=== PATIENT | male | born 1955 | race Caucasian/White ===

== ENCOUNTER 2018-01-06 14:42 | Emergency (ER) | payer OTHER, SELFPAY ==
[2018-01-06 14:52] VITALS: BP 142/76; PULSE 52; RESP 14; TEMP 36.4; O2SAT 100; BMI 25.8
--- NOTE | 2018-01-06 17:37 | PC.NURSE ---
has seen pt and is looking to see what abx will help pt
--- NOTE | 2018-01-06 18:21 | ED_ITS ---
HPI - Skin/Abscess/Foreign Bdy General Chief complaint: Skin/Abscess/Foreign Body Stated complaint: states infection on face History of Present Illness HPI narrative: HPI 62-year-old male with gum disease presents for evaluation of 3 weeks of mild bilateral lower cheek induration, tenderness, and mild swelling. Denies prior trauma, fevers, chills. ROS with no recent constitutional symptoms. Exam Gen: Pleasant, nontoxic-appearing, resting comfortably. HEENT: NC, AT, PEERL, EOMI. Oropharynx visually normal. Resp: Unlabored respirations with a normal work of breathing. Card: Extremities warm and well perfused. GI: Non-distended. : Deferred MSK: No visible deformities, strength and tone without visually appreciable deficit. Neuro: AO x 3, no facial asymmetry, vision and hearing WNL. Heme/Lymph: Deferred Skin: skin on the bilateral cheeks predominately overlying the mandibles of approximately 6 cm horizontally and 3 cm vertically there is mild induration, tenderness, swelling, 2 or 3 small central areas of approximately 3-6 mm in diameter with partial dermal thickness wound/lesion. No drainage. No fluctuance or crepitus. Bedside ultrasound without gas, fluid collections, but with mild soft tissue cobblestoning. Psych: Mood and affect appropriate. MDM Previous chart, nursing note, and vitals reviewed. A: 62-year-old male with gum disease presents for evaluation of 3 weeks of mild bilateral lower cheek induration, tenderness, and mild swelling. DDx & Evaluation: patient clinically with cutaneous infection, no clear identifiable risk factors other than gum disease, given duration of symptoms, partial-thickness skin breakdown, and risk factors actinomycosis remains on the differential, no fluid could be expressed to be cultured. However, more likely is cellulitis from staff or strap. The patient was prescribed amoxicillin and doxycycline for initial empiric treatment instructed to follow up with his PCP for further care. No evidence of necrotizing fasciitis, Ludgwig's angina, or abscesses on exam. Impression: cellulitis (please reference below for remainder of encounter information) Related Data Home Medications Medication Instructions Recorded Confirmed BUPRENORPHINE/NALOXONE (SUBOXONE) 1.5 tab PO QDAY #0 07/18/11 12/05/17 CA PANTOTHENATE/FOLIC ACID/VIT 1 tab PO Q DAY #0 07/18/11 12/05/17 (MULTIVITAMIN) ascorbic acid (vitamin C) 500 mg PO BID #0 07/24/11 12/05/17 aspirin 81 mg QDAY #0 11/26/16 12/05/17 pravastatin 10 mg tablet 10 mg PO BEDTIME 10/29/17 12/05/17 Previous Rx's Medication Instructions Recorded nitroglycerin [Nitrostat] 0.4 mg SUBLINGUAL PRN PRN #20 tab 11/16/16 promethazine 25 mg PO Q6HP PRN #20 tab 12/04/16 bupropion HCl SR 150 mg tablet,12 150 mg PO DAILY #30 tab 10/29/17 hr sustained-release gabapentin 300 mg capsule 900 mg PO BEDTIME #90 cap 10/29/17 cyclobenzaprine 10 mg tablet 10 mg PO TIDP #30 tab 11/01/17 dextroamphetamine-amphetamine 5 mg 5 mg PO BID #60 tab 01/01/18 tablet Allergies Allergy/AdvReac Type Severity Reaction Status Date / Time diphenhydramine Allergy Mild HYPERKINETIC Verified 01/06/18 14:55 [DIPHENHYDRAMINE] CAN'T STOP MOVING hydroxyzine [HYDROXYZINE] Allergy Mild HYPERKINETIC Verified 01/06/18 14:55 CAN'T STOP MOVING atomoxetine [From STRATTERA] AdvReac Unknown RAPID Verified 01/06/18 14:55 HEART RATE PFSH Medical History ADHD (attention deficit hyperactivity disorder) (Chronic 2017) Chronic back pain (Chronic) Chronic headaches (Chronic) Depression (Chronic) Hyperlipidemia (Chronic) Lumbar spine pain (Chronic) CTS (carpal tunnel syndrome) (Resolved) Cryptococcal meningitis (Resolved) Kidney stones (Resolved 2007) Non-STEMI (non-ST elevated myocardial infarction) (Resolved 2016) Surgical History History of carpal tunnel repair (Resolved 09/2005) History of lithotripsy (Resolved 02/07/08) Status post colonoscopy (Resolved 2008) Status post laminectomy (Resolved 1983) Status post laminectomy (Resolved 1999) Social History Smoking Status: Never smoker Exam Initial Vital Signs Initial Vital Signs: Vital Signs Temperature 97.6 F 01/06/18 14:52 Pulse Rate 52 L 01/06/18 14:52 Respiratory Rate 14 01/06/18 14:52 Blood Pressure 142/76 H 01/06/18 14:52 Pulse Oximetry 100 01/06/18 14:52 Course Vital Signs - 8 hr 01/06/18 14:52 Temperature 97.6 F Pulse Rate 52 L Respiratory Rate 14 Blood Pressure 142/76 H Pulse Oximetry 100 Discharge Plan Departure Prescriptions: No Action CA PANTOTHENATE/FOLIC ACID/VIT (MULTIVITAMIN) 1 tab PO Q DAY Qty: 0 RF: 0 BUPRENORPHINE/NALOXONE (SUBOXONE) 1.5 tab PO QDAY Qty: 0 RF: 0 ascorbic acid (vitamin C) 500 MG tablet 500 mg PO BID Qty: 0 RF: 0 nitroglycerin [Nitrostat] 0.4 MG tablet, sublingual 0.4 mg Sublingual PRN PRNQty: 20 RF: 12 aspirin 81 MG tablet,delayed release (DR/EC) 81 mg QDAY Qty: 0 RF: 0 promethazine 25 MG tablet 25 mg PO Q6HP PRNQty: 20 RF: 0 dextroamphetamine-amphetamine [Adderall] 5 mg tablet 5 mg PO BID Qty: 60 RF: 0 pravastatin 10 mg tablet 10 mg PO BEDTIME RF: 0 bupropion HCl 150 mg tablet extended release 12 hr 150 mg PO DAILY Qty: 30 RF: 0 gabapentin 300 mg capsule 900 mg PO BEDTIME Qty: 90 RF: 0 cyclobenzaprine 10 mg tablet 10 mg PO TIDP Qty: 30 RF: 0
[2018-01-06] MEDS: AMOXICILLIN 250 MG CAPSULE 500 MG PO (18:34)
[2018-01-06] MEDS: DOXYCYCLINE HYCLATE 100 MG TABLET PO (18:34)
[2018-01-06 18:39] VITALS: BP 136/83; PULSE 46; RESP 20; O2SAT 99
== END 2018-01-06 18:40 | disposition home or self-care (01) ==
PROVIDERS: Emergency Provider Emergency Medicine; Family Provider Family Medicine; PCP Family Medicine
DX: L03.211 Cellulitis of face (principal)
CPT/HCPCS: 99282; 99283

== ENCOUNTER 2018-08-20 20:55 | Observation (INO) | payer OTHER, SELFPAY ==
[2018-08-20] VITALS (7 sets, daily range): BP systolic 99–124; BP diastolic 55–68; PULSE 59–88; RESP 11–18; TEMP 37; O2SAT 95–98; BMI 25.5
--- NOTE | 2018-08-20 21:03 | DI.RAD.S_ITS ---
PROCEDURE: XR CHEST 1V INDICATIONS: Chest pain TECHNIQUE: One view of the chest was acquired. COMPARISON: [facility], , CHEST 1 VIEW, 11/26/2016, 14:53. FINDINGS: Surgical changes and devices: None. Lungs and pleura: Lungs are clear. No pleural effusions or pneumothorax. Mediastinum: Mediastinal contours appear normal. Heart size is normal. Bones and chest wall: No suspicious bony lesions. Overlying soft tissues appear unremarkable. IMPRESSION: No evidence acute pulmonary process. Dictated by: Vasile Lepe M.D. on 08/20/2018 at 21:42 Approved by: Vasile Lepe M.D. on 08/20/2018 at 21:42
--- NOTE | 2018-08-20 21:12 | ED.CHESTPAIN ---
HPI - Chest Pain General Chief Complaint: Chest Pain Stated Complaint: CHEST PAIN Time Seen by Provider: 08/20/18 20:57 Source: patient Mode of arrival: ambulatory Limitations: no limitations History of Present Illness HPI narrative: The patient presents with chest pain across his upper sternum that started about noon today. He was at work at that time. 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 Pain is across the upper chest, focused around the sternum. Discomfort increases with deep breathing. He has no discomfort at rest. There is no radiation to the left jaw or neck, or down the left arm. He has no associated dyspnea or diaphoresis. He has a prior history of what he described as a small [place]. He mentioned having a coronary spasm. He is a nonsmoker. He denies hypertension, or diabetes. He took Valium prior to arrival, thinking he had muscle spasm. Valium did not alleviate the discomfort. He has no recent illness. He denies cough, fever or shortness of breath. His MO was about 1-1/2 years ago. He saw cardiology initially after the event. 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 He has no follow-up cardiac care. He has not had a stress test. Related Data Home Medications Medication Instructions Recorded Confirmed BUPRENORPHINE/NALOXONE (SUBOXONE) 8 mg PO QDAY #0 07/18/11 08/20/18 CA PANTOTHENATE/FOLIC ACID/VIT 1 tab PO Q DAY #0 07/18/11 08/20/18 (MULTIVITAMIN) ascorbic acid (vitamin C) 500 mg PO BID #0 07/24/11 08/20/18 aspirin 81 mg QDAY #0 11/26/16 08/20/18 pravastatin 10 mg tablet 10 mg PO BEDTIME 10/29/17 08/20/18 Previous Rx's Medication Instructions Recorded nitroglycerin 0.4 mg sublingual 0.4 mg SUBLINGUAL PRN PRN #20 tab 01/29/18 tablet dextroamphetamine-amphetamine 5 mg 5 mg PO BID #60 tab 07/09/18 tablet bupropion HCl SR 150 mg tablet,12 150 mg PO DAILY #90 tab 08/20/18 hr sustained-release Allergies Allergy/AdvReac Type Severity Reaction Status Date / Time diphenhydramine Allergy Mild HYPERKINETIC Verified 04/25/18 15:32 [DIPHENHYDRAMINE] CAN'T STOP MOVING hydroxyzine [HYDROXYZINE] Allergy Mild HYPERKINETIC Verified 04/25/18 15:32 CAN'T STOP MOVING atomoxetine [From STRATTERA] AdvReac Unknown RAPID Verified 04/25/18 15:32 HEART RATE Review of Systems Review of Systems ROS Unobtainable: All systems reviewed & are unremarkable except as noted in HPI and below Constitutional Denies chills, Denies fever(s), Denies lethargy and Denies weakness ENT Ears, Nose, Mouth, and Throat: Denies dizziness, Denies neck pain and Denies sore throat Cardiovascular Reports chest pain (Across the upper chest), Denies palpitations and Denies dyspnea Respiratory Denies cough, Denies dyspnea and Denies wheezing Gastrointestinal Gastrointestinal: Denies abdominal pain, Denies change in bowel habits, Denies nausea, Denies vomiting and Reports other (No history of GERD) Musculoskeletal Denies back pain and Denies neck pain Integumentary/Breasts Denies erythema and Denies rash Neurologic Denies dizziness and Denies weakness Endocrine Denies palpitations Allergic/Immunologic Denies wheezing [facility] Medical History ADHD (attention deficit hyperactivity disorder) (Chronic 2017) Chronic back pain (Chronic) Chronic headaches (Chronic) Depression (Chronic) Hyperlipidemia (Chronic) Lumbar spine pain (Chronic) CTS (carpal tunnel syndrome) (Resolved) Cryptococcal meningitis (Resolved) Kidney stones (Resolved 2007) Non-STEMI (non-ST elevated myocardial infarction) (Resolved 2016) Surgical History History of carpal tunnel repair (Resolved 09/2005) History of lithotripsy (Resolved 02/07/08) Status post colonoscopy (Resolved 2008) Status post laminectomy (Resolved 1983) Status post laminectomy (Resolved 1999) Social History Smoking Status: Never smoker Social History Smoking Status: Never smoker Exam Initial Vital Signs Initial Vital Signs: Vital Signs Pulse Rate 74 08/20/18 21:05 Respiratory Rate 18 08/20/18 21:05 Blood Pressure 124/67 08/20/18 21:05 Pulse Oximetry 98 08/20/18 21:05 Const General: cooperative and well developed Nutritional Appearance: well nourished Orientation: alert, awake and oriented x3 [facility] Mouth: oral mucosae normal Throat: posterior oropharynx normal and tonsils normal Eyes General: appearance normal, both eyes and all related structures Eyelids: eyelids normal Conjunctivae: conjunctivae normal Sclera: sclerae normal Pupils: PERRL EOM: EOM intact bilaterally Neck Neck: supple and No JVD Thyroid: thyroid normal Chest Chest: normal inspection of the chest Resp Effort & Inspection: normal respiratory effort and able to speak in complete sentences Auscultation: clear to auscultation bilaterally, no rales, no rhonchi and no wheezes Cardio Rate: regular rate Rhythm: regular rhythm Heart Sounds: no click, no gallops, no murmurs and no rubs Pulses: normal peripheral pulses GI Inspection: non-distended Palpation: soft, no hepatosplenomegaly, No guarding, No pulsatile mass and No tender Auscultation: normal bowel sounds Skin General: no rashes or lesions noted, No jaundice and No petechiae Neuro General: alert, oriented x3, gait normal and no focal motor deficits Speech: speech normal Extrem General: full ROM, no pedal edema and no calf tenderness Psych Appearance: well kempt Mental Status: mental status grossly normal Attitude: cooperative Thought Content: normal Course Course Narrative: The patient describes pain that is not immediately suggestive cardiac pain. Toradol did not alleviate his symptoms. Topical nitro did not alleviate his symptoms. His 1st EKG raises concern of subtle ST changes in leads V1 through the 3. A repeat EKG looks to be more similar to an older EKG. His enzymes are negative. I discussed his care with Cardiology, Dr. Kessler. The patient be admitted to the hospitalist,DIONE Guzman. I gave the patient an injection of Lovenox. Cardiology recommended an echocardiogram and stress test if the cardiac enzymes are negative through the night. These recommendations have been forwarded to the hospitalist. Orders Ordered: ED Orders 08/20/18 21:02 Basic Metabolic Panel Stat Complete Blood Count AUTO DIFF Stat D Dimer Stat Troponin & CK Cardiac Panel Stat 08/20/18 21:03 XR chest 1V Stat EKG-12 Lead Stat Sodium Chloride (Normal Saline 0.9%) 1,000 mls @ 150 mls/hr IV CONT KATRIN Last Admin: 08/20/18 21:21 Dose: 150 mls/hr Discontinued Medications Aspirin (Aspirin Chew) 324 mg PO NOW ONE Stop: 08/20/18 21:04 Last Admin: 08/20/18 21:21 Dose: 324 mg Enoxaparin Sodium (Lovenox) 80 mg 1 mg/kg (80 mg) SUBCUT NOW ONE Stop: 08/20/18 23:46 Ketorolac Tromethamine (Toradol) 15 mg IV NOW ONE Stop: 08/20/18 21:04 Last Admin: 08/20/18 21:21 Dose: 15 mg Nitroglycerin (Nitro-Bid) 1 inch TOP NOW ONE Stop: 08/20/18 21:06 Last Admin: 08/20/18 21:20 Dose: 1 inch Vital Signs - 8 hr 08/20/18 21:05 08/20/18 21:20 08/20/18 21:30 Pulse Rate 74 88 71 Respiratory Rate 18 12 Blood Pressure 124/67 114/68 Blood Pressure [Right Arm] 108/66 Pulse Oximetry 98 96 08/20/18 22:30 08/20/18 23:00 Pulse Rate 67 59 L Respiratory Rate 11 L Blood Pressure Blood Pressure [Right Arm] 104/66 101/62 Pulse Oximetry 96 95 MDM - Chest Pain Lab Data Result diagrams: 08/20/18 21:02 08/20/18 21:02 Lab Results 08/20/18 08/20/18 08/20/18 Range/Units 21:02 21:02 21:02 WBC 9.7 (4.5-11.0) X10^3/uL RBC 4.35 L (4.5-5.9) X10^6/uL Hgb 13.1 L (13.5-17.5) g/dL Hct 39.9 L (41-53) % MCV 91.7 (80-100) fL MCH 30.0 (26-34) PG MCHC 32.7 (30-36) % RDW 13.3 (11.6-14.8) % Plt Count 243 (150-400) X10^3/uL Neut % (Auto) 82.6 H (50-75) % Lymph % (Auto) 11.7 L (25-40) % [place] % (Auto) 5.1 (3-14) % Eos % (Auto) 0.2 L (2-4) % Baso % (Auto) 0.4 (0-2) % Neut # (Auto) 8000 H (1189-0147) /uL Lymph # (Auto) 1100 (6583-3973) /uL [place] # (Auto) 500 (0-900) /uL Eos # (Auto) 0 (0-450) /uL Baso # (Auto) 0 (0-100) /uL D-Dimer < 200 (<230) ng/mL Sodium 138 (137-145) mmol/L Potassium 3.7 (3.4-5.1) mmol/L Chloride 98 (98-107) mmol/L Carbon Dioxide 31 (22-32) mmol/L BUN 22 H (9-20) mg/dL Creatinine 0.90 (0.66-1.25) mg/dL Estimated GFR > 60.0 (>60) mL/min BUN/Creatinine Ratio 24.4 H (6-22) Glucose 114 H (80-110) mg/dL Calcium 9.3 (8.4-10.2) mg/dL Total Creatine Kinase 86 (55-170) U/L CK-MB (CK-2) TNP CK-MB (CK-2) Rel Index TNP Troponin I < 0.012 (0.01-0.034) ng/mL Imaging Data Chest x-ray: Radiologist's impression: [address] [id number] XRay Report Signed Patient: Franki Reynolds EMR#: [id number] : 7Acct:[id number] Age/Sex: 63 / MDate of Service: 08/20/18 Loc: ED Accession Number: [id number] Procedure: XR chest 1V Ordering Provider: Dennis Madrid M.D. PROCEDURE: XR CHEST 1V INDICATIONS: Chest pain TECHNIQUE: One view of the chest was acquired. COMPARISON: [facility] , CHEST 1 VIEW, 11/26/2016, 14:53. FINDINGS: Surgical changes and devices: None. Lungs and pleura: Lungs are clear. No pleural effusions or pneumothorax. Mediastinum: Mediastinal contours appear normal. Heart size is normal. Bones and chest wall: No suspicious bony lesions. Overlying soft tissues appear unremarkable. IMPRESSION: No evidence acute pulmonary process. Dictated by: Vasile Lepe M.D. on 08/20/2018 at 21:42 Approved by: Vasile Lepe M.D. on 08/20/2018 at 21:42 ECG Data Attestation: I personally reviewed and interpreted this ECG as follows: (EKG#1: Normal sinus rhythm rate 90 bpm. Low voltage in QRS precordial leads. Nonspecific ST T wave changes, specifically in V1 through V3. ST segments appear different from the EKG from 1.5 years ago. EKG #2: normal sinus rhythm rate 73 bpm. Low voltage in precordial leads. EKG is c/w old EKG) Discharge Plan Departure Patient Disposition: Admitted as Observation Clinical Impression: Atypical chest pain Admit Date/Time: 08/20/18 23:42 Admit Provider: Sriram Guzman
[2018-08-20] MEDS: NITROGLYCERIN OINT 1 INCH/GM OINT...G. TOP (21:20)
[2018-08-20 21:21] LABS: Add Manual Diff / Slide Review NO; Basophils Absolute Auto 0 /uL (0-100); Basophils Percent Auto 0.4 % (0-2); Eosinophils Absolute Auto 0 /uL (0-450); Eosinophils Percent Auto 0.2 % (2-4); Hematocrit 39.9 % (41-53); Hemoglobin 13.1 g/dL (13.5-17.5); Lymphocytes Absolute Auto 1100 /uL (1100-4500); Lymphocytes Percent Auto 11.7 % (25-40); Mean Corpuscular HGB Conc 32.7 % (30-36); Mean Corpuscular Volume 91.7 fL (80-100); Monocytes Absolute Auto 500 /uL (0-900); Monocytes Percent Auto 5.1 % (3-14); Neutrophils Absolute Auto 8000 /uL (1500-7000); Neutrophils Percent Auto 82.6 % (50-75); Platelet Count 243 X10^3/uL (150-400); Red Blood Cell Count 4.35 X10^6/uL (4.5-5.9); Red Cell Distribution Width 13.3 % (11.6-14.8); White Blood Cell Count 9.7 X10^3/uL (4.5-11.0)
[2018-08-20] MEDS: KETOROLAC 60 MG/2 ML VIAL 15 MG IV (21:21)
[2018-08-20] MEDS: SODIUM CHLORIDE 0.9% 1,000 ML 150 ML IV (21:21)
[2018-08-20] MEDS: ASPIRIN 81 MG TAB 324 MG PO (21:21)
[2018-08-20 21:37] LABS: BUN Creatinine Ratio 24.4 (6-22); Blood Urea Nitrogen 22 mg/dL (9-20); Calcium 9.3 mg/dL (8.4-10.2); Carbon Dioxide 31 mmol/L (22-32); Chloride 98 mmol/L (98-107); Creatine Kinase 86 U/L (55-170); Estimated Glomerular Filt Rate > 60.0 mL/min (>60); Glucose 114 mg/dL (80-110); HEMOLYSIS < 15 (0-50); Potassium 3.7 mmol/L (3.4-5.1); Sodium 138 mmol/L (137-145)
[2018-08-20 21:42] LABS: D Dimer < 200 ng/mL (<230)
[2018-08-20 21:49] LABS: Troponin I < 0.012 ng/mL (0.01-0.034)
--- NOTE | 2018-08-20 22:15 | PC.NURSE ---
PT states upper sternum CP onset noon today that increases with deep breathing and no discomfort at rest. Reports history of a small [place]. He took 2 nitro prior to arrival and valium, thinking he had muscle spasm. Valium did not alleviate the discomfort. He has no recent illness. He denies cough, fever, nausea, shortness of breath, hypertension, or diabetes.
[2018-08-20] MEDS: ENOXAPARIN 40 MG/0.4 ML SYRINGE 80 MG SUBCUT (23:55)
--- NOTE | 2018-08-20 23:57 | ED_ITS ---
HPI - Chest Pain General Chief Complaint: Chest Pain Stated Complaint: CHEST PAIN Time Seen by Provider: 08/20/18 20:57 Source: patient Mode of arrival: ambulatory Limitations: no limitations Related Data Home Medications Medication Instructions Recorded Confirmed BUPRENORPHINE/NALOXONE (SUBOXONE) 8 mg PO QDAY #0 07/18/11 08/20/18 CA PANTOTHENATE/FOLIC ACID/VIT 1 tab PO Q DAY #0 07/18/11 08/20/18 (MULTIVITAMIN) ascorbic acid (vitamin C) 500 mg PO BID #0 07/24/11 08/20/18 aspirin 81 mg QDAY #0 11/26/16 08/20/18 pravastatin 10 mg tablet 10 mg PO BEDTIME 10/29/17 08/20/18 Previous Rx's Medication Instructions Recorded nitroglycerin 0.4 mg sublingual 0.4 mg SUBLINGUAL PRN PRN #20 tab 01/29/18 tablet dextroamphetamine-amphetamine 5 mg 5 mg PO BID #60 tab 07/09/18 tablet bupropion HCl SR 150 mg tablet,12 150 mg PO DAILY #90 tab 08/20/18 hr sustained-release Allergies Allergy/AdvReac Type Severity Reaction Status Date / Time diphenhydramine Allergy Mild HYPERKINETIC Verified 04/25/18 15:32 [DIPHENHYDRAMINE] CAN'T STOP MOVING hydroxyzine [HYDROXYZINE] Allergy Mild HYPERKINETIC Verified 04/25/18 15:32 CAN'T STOP MOVING atomoxetine [From STRATTERA] AdvReac Unknown RAPID Verified 04/25/18 15:32 HEART RATE Review of Systems Constitutional Denies weakness ENT Ears, Nose, Mouth, and Throat: Denies dizziness Neurologic Denies dizziness and Denies weakness [facility] Medical History ADHD (attention deficit hyperactivity disorder) (Chronic 2017) Chronic back pain (Chronic) Chronic headaches (Chronic) Depression (Chronic) Hyperlipidemia (Chronic) Lumbar spine pain (Chronic) CTS (carpal tunnel syndrome) (Resolved) Cryptococcal meningitis (Resolved) Kidney stones (Resolved 2007) Non-STEMI (non-ST elevated myocardial infarction) (Resolved 2016) Surgical History History of carpal tunnel repair (Resolved 09/2005) History of lithotripsy (Resolved 02/07/08) Status post colonoscopy (Resolved 2008) Status post laminectomy (Resolved 1983) Status post laminectomy (Resolved 1999) Social History Smoking Status: Never smoker Social History Smoking Status: Never smoker Exam Initial Vital Signs Initial Vital Signs: Vital Signs Pulse Rate 74 08/20/18 21:05 Respiratory Rate 18 08/20/18 21:05 Blood Pressure 124/67 08/20/18 21:05 Pulse Oximetry 98 08/20/18 21:05 Course Orders Ordered: ED Orders 08/20/18 21:02 Basic Metabolic Panel Stat Complete Blood Count AUTO DIFF Stat D Dimer Stat Troponin & CK Cardiac Panel Stat 08/20/18 21:03 XR chest 1V Stat EKG-12 Lead Stat Sodium Chloride (Normal Saline 0.9%) 1,000 mls @ 150 mls/hr IV CONT KATRIN Last Admin: 08/20/18 21:21 Dose: 150 mls/hr Discontinued Medications Aspirin (Aspirin Chew) 324 mg PO NOW ONE Stop: 08/20/18 21:04 Last Admin: 08/20/18 21:21 Dose: 324 mg Enoxaparin Sodium (Lovenox) 80 mg 1 mg/kg (80 mg) SUBCUT NOW ONE Stop: 08/20/18 23:46 Last Admin: 08/20/18 23:55 Dose: 80 mg Ketorolac Tromethamine (Toradol) 15 mg IV NOW ONE Stop: 08/20/18 21:04 Last Admin: 08/20/18 21:21 Dose: 15 mg Nitroglycerin (Nitro-Bid) 1 inch TOP NOW ONE Stop: 08/20/18 21:06 Last Admin: 08/20/18 21:20 Dose: 1 inch Vital Signs - 8 hr 08/20/18 21:05 08/20/18 21:20 08/20/18 21:30 Pulse Rate 74 88 71 Respiratory Rate 18 12 Blood Pressure 124/67 114/68 Blood Pressure [Right Arm] 108/66 Pulse Oximetry 98 96 08/20/18 22:30 08/20/18 23:00 Pulse Rate 67 59 L Respiratory Rate 11 L Blood Pressure Blood Pressure [Right Arm] 104/66 101/62 Pulse Oximetry 96 95 MDM - Chest Pain Lab Data Result diagrams: 08/20/18 21:02 08/20/18 21:02 Lab Results 08/20/18 08/20/18 08/20/18 Range/Units 21:02 21:02 21:02 WBC 9.7 (4.5-11.0) X10^3/uL RBC 4.35 L (4.5-5.9) X10^6/uL Hgb 13.1 L (13.5-17.5) g/dL Hct 39.9 L (41-53) % MCV 91.7 (80-100) fL MCH 30.0 (26-34) PG MCHC 32.7 (30-36) % RDW 13.3 (11.6-14.8) % Plt Count 243 (150-400) X10^3/uL Neut % (Auto) 82.6 H (50-75) % Lymph % (Auto) 11.7 L (25-40) % [place] % (Auto) 5.1 (3-14) % Eos % (Auto) 0.2 L (2-4) % Baso % (Auto) 0.4 (0-2) % Neut # (Auto) 8000 H (5430-9417) /uL Lymph # (Auto) 1100 (3637-3109) /uL [place] # (Auto) 500 (0-900) /uL Eos # (Auto) 0 (0-450) /uL Baso # (Auto) 0 (0-100) /uL D-Dimer < 200 (<230) ng/mL Sodium 138 (137-145) mmol/L Potassium 3.7 (3.4-5.1) mmol/L Chloride 98 (98-107) mmol/L Carbon Dioxide 31 (22-32) mmol/L BUN 22 H (9-20) mg/dL Creatinine 0.90 (0.66-1.25) mg/dL Estimated GFR > 60.0 (>60) mL/min BUN/Creatinine Ratio 24.4 H (6-22) Glucose 114 H (80-110) mg/dL Calcium 9.3 (8.4-10.2) mg/dL Total Creatine Kinase 86 (55-170) U/L CK-MB (CK-2) TNP CK-MB (CK-2) Rel Index TNP Troponin I < 0.012 (0.01-0.034) ng/mL Discharge Plan Departure Patient Disposition: Admitted as Observation Clinical Impression: Atypical chest pain Referrals: Sina Collier MD [Primary Care Provider] - Admit Date/Time: 08/20/18 23:42 Admit Provider: Sriram Guzman
--- NOTE | 2018-08-20 23:58 | PM.HP.1 ---
History of Present Illness Date Patient Seen: 08/20/18 Time Patient Seen: 23:58 Chief complaint: CHEST PAIN Narrative: PMH: Dyslipidemia, h/o NSTEMI 2017, cryptococcal meningitis (1992), post encephalopathy cognitive impairment (tx w/ adderall), chronic pain (on suboxone), depression, chronic headaches, nephrolithiasis PSH: Carpal tunnel repair, lithotripsy 01/2008, colonoscopy (2008), laminectomy (1983, 1999) The patient a 63-year-old male with aforementioned medical history who presented to the ED out of concern for chest discomfort. Symptom onset at noon on 08/20/2018, respectively, sudden onset. At time of the event patient was working in his garage and had exposure to oil based solvents. Describes chest discomfort as an ache. Magnitude 4/10. Chest discomfort is localized to upper aspect of the sternum. Does not radiate to the extremities, neck or jaw. Exacerbated with deep inspiration and relieved with rest. Noted to be of variable intensity with position change, worse when bending down. Trialed a nitro for pain relief, which was ineffective. Reports partaking in a 1/2 hour vigorous interval training later in the day via a stairmaster, did not involve use of upper arms / torso, felt chest discomfort improved a bit. Tolerated vigorous exercise without difficulty. Ate a small dinner and had wine, shortly after experienced a pounding sensation in chest, checked pulse and noted it to be in the 80 bpm range (typically runs in the 60s). Denies associated symptoms of dyspnea, palpitations, hemoptysis, diaphoresis, dizziness, lightheadedness, syncopal events, peripheral edema, orthopnea, claudication, PND, abdominal pain, nausea, or vomiting. In the past week, most recent 2-3 days ago, has been rowing and bench pressing. Denies any chest discomfort at that time. Did not hear a popping sensation. Denies recent illness. In the past three weeks started taking 'amino acids.' Takes this concurrently with adderall and wellbutrin. Patient is known to have a prior history of NSTEMI (09/2016) with associated left arm discomfort, s/p cardiac cath which was unremarkable for severe stenosis, there were evidence of microvascular disease. Per patient, his symptoms were attributed to a coronary spasm. Patient has not been following up with Cardiology routinely since the aforementioned event in 2017. He has had multiple ED presentations w/ CP afterwards. No prior history of a stress test in the past. Denies h/o arthritis, malignancy or vasculitis. No new rashes. No recent dental procedures. 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 Chest discomfort is different from his previous episodes of chest pain. Patient History Medical History ADHD (attention deficit hyperactivity disorder) (Chronic 2017) Chronic back pain (Chronic) Chronic headaches (Chronic) Depression (Chronic) Hyperlipidemia (Chronic) Lumbar spine pain (Chronic) CTS (carpal tunnel syndrome) (Resolved) Cryptococcal meningitis (Resolved) Kidney stones (Resolved 2007) Non-STEMI (non-ST elevated myocardial infarction) (Resolved 2016) Surgical History History of carpal tunnel repair (Resolved 09/2005) History of lithotripsy (Resolved 02/07/08) Status post colonoscopy (Resolved 2008) Status post laminectomy (Resolved 1983) Status post laminectomy (Resolved 1999) Social History Smoking Status: Never smoker Family & Social History Family History Father Cancer Social History: 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 Currently works for the [employer]. Exercises regularly. Lifelong NON-smoker. Drinks wine several times a week. Tobacco & Substance use: Smoking Status Never smoker alcohol intake frequency 0-2 drinks per day Substance Use Type does not use Meds Home Medications Medication Instructions Recorded Confirmed Type BUPRENORPHINE/NALOXONE (SUBOXONE) 8 mg PO QDAY #0 07/18/11 08/20/18 History CA PANTOTHENATE/FOLIC ACID/VIT 1 tab PO Q DAY #0 07/18/11 08/20/18 History (MULTIVITAMIN) ascorbic acid (vitamin C) 500 mg PO BID #0 07/24/11 08/20/18 History aspirin 81 mg QDAY #0 11/26/16 08/20/18 History pravastatin 10 mg tablet 10 mg PO BEDTIME 10/29/17 08/20/18 History nitroglycerin 0.4 mg sublingual 0.4 mg SUBLINGUAL PRN PRN #20 tab 01/29/18 08/20/18 Rx tablet dextroamphetamine-amphetamine 5 mg 5 mg PO BID #60 tab 07/09/18 08/20/18 Rx tablet bupropion HCl SR 150 mg tablet,12 150 mg PO DAILY #90 tab 08/20/18 08/20/18 Rx hr sustained-release Allergies Allergy/AdvReac Type Severity Reaction Status Date / Time diphenhydramine Allergy Mild HYPERKINETIC Verified 04/25/18 15:32 [DIPHENHYDRAMINE] CAN'T STOP MOVING hydroxyzine [HYDROXYZINE] Allergy Mild HYPERKINETIC Verified 04/25/18 15:32 CAN'T STOP MOVING atomoxetine [From STRATTERA] AdvReac Unknown RAPID Verified 04/25/18 15:32 HEART RATE Review of Systems Review of Systems All systems reviewed & are unremarkable except as noted in HPI and below Exam Vital Signs (past 8 hours): - 08/20/18 21:05 08/20/18 21:20 08/20/18 21:30 Pulse Rate 74 88 71 Respiratory Rate 18 12 Blood Pressure 124/67 114/68 Blood Pressure [Right Arm] 108/66 Pulse Oximetry 98 96 08/20/18 22:30 08/20/18 23:00 Pulse Rate 67 59 L Respiratory Rate 11 L Blood Pressure Blood Pressure [Right Arm] 104/66 101/62 Pulse Oximetry 96 95 Oxygen Delivery Method Room Air Narrative Exam Narrative: Constitutional: NAD, chest discomfort 06/27 Neurologic: AOx3, no focal neurological deficits Head: NC, AT Eyes: Pupils equal, round and reactive, EOMI Ears: external ears normal Nose: external nose normal, no rhinorrhea or epistaxis Throat: dry MM, oropharynx w/o exudate Neck: no masses, lymphadenopathy, or JVD Chest / Respiratory: equal chest rise, unlabored respiratory effort, no tachypnea or tachycardia, diminished breath sounds no chest discomfort with palpation of ribs or sternum Heart / CV: S1S2 Abdomen / GI: round, NT, ND, + BS, no organomegaly : no suprapubic tenderness, no CVA Peripheral / Vascular: warm to touch, DP and PT pulses palpable, no edema Musc: full ROM of upper and lower extremities, adequate muscle tone and bulk Skin: no ecchymosis or suspicious lesions / ulcers Objective Labs Result Diagrams: 08/20/18 21:02 08/20/18 21:02 Labs: Laboratory Results - last 24 hr 08/20/18 08/20/18 08/20/18 21:02 21:02 21:02 WBC 9.7 RBC 4.35 L Hgb 13.1 L Hct 39.9 L MCV 91.7 MCH 30.0 MCHC 32.7 RDW 13.3 Plt Count 243 Neut % (Auto) 82.6 H Lymph % (Auto) 11.7 L [place] % (Auto) 5.1 Eos % (Auto) 0.2 L Baso % (Auto) 0.4 Neut # (Auto) 8000 H Lymph # (Auto) 1100 [place] # (Auto) 500 Eos # (Auto) 0 Baso # (Auto) 0 D-Dimer < 200 Sodium 138 Potassium 3.7 Chloride 98 Carbon Dioxide 31 BUN 22 H Creatinine 0.90 Estimated GFR > 60.0 BUN/Creatinine Ratio 24.4 H Glucose 114 H Calcium 9.3 Total Creatine Kinase 86 CK-MB (CK-2) TNP CK-MB (CK-2) Rel Index TNP Troponin I < 0.012 Assessment & Plan Assessment & Plan narrative: Atypical chest pain, acute, present on admission Appears to be of musculoskeletal nature, costocondritis ? Will need to r/o ischemia Trop < 0.012. D-Dimer < 200. CXR w/o cardiomegaly or an acute cardiopulmonary process EKG #1, 08/20/2018 2101: sinus rhythm (v-rate 90) w/ marked sinus arrhythmia with 1st degree AV block, nonspecific ST /T changes EKG #2, sinus rhythm (v-rate 73) with sinus arrhythmia with 1st degree AV block DDx: acute pericarditis, ischemic chest pain, aortic dissection, PE, neoplasm - Trend troponin - EKG prn w/ acute episode of chest pain - Echo in am re: eval for structural heart disease, pericarditis - Stress test, not necessary as he had a normal cardiac cath in September 2016, will defer evaluation to am rounding team - Consider CT / MRI of chest - Supportive care: ice / heat application, minimize activities that aggravate symptoms tylenol or ibuprofen for discomfort - D/C use of amino acids, may interfere with atypical antidepressants. - Discouraged use of CABLE STRANDER meds w/ alcohol. 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
[2018-08-21] VITALS (9 sets, daily range): BP systolic 93–119; BP diastolic 53–70; PULSE 57–68; RESP 11–18; TEMP 36.3–36.6; O2SAT 95–100; BMI 25.5
[2018-08-21] MEDS: SODIUM CHLORIDE 0.9% 1,000 ML 100 ML IV (01:33)
[2018-08-21 05:53] LABS: Add Manual Diff / Slide Review NO; Basophils Absolute Auto 0 /uL (0-100); Basophils Percent Auto 0.4 % (0-2); Eosinophils Absolute Auto 0 /uL (0-450); Eosinophils Percent Auto 0.9 % (2-4); Hematocrit 36.6 % (41-53); Hemoglobin 12.2 g/dL (13.5-17.5); Lymphocytes Absolute Auto 1700 /uL (1100-4500); Lymphocytes Percent Auto 31.4 % (25-40); Mean Corpuscular HGB Conc 33.3 % (30-36); Mean Corpuscular Hemoglobin 30.1 PG (26-34); Mean Corpuscular Volume 90.6 fL (80-100); Monocytes Absolute Auto 500 /uL (0-900); Monocytes Percent Auto 9.5 % (3-14); Neutrophils Absolute Auto 3100 /uL (1500-7000); Neutrophils Percent Auto 57.8 % (50-75); Platelet Count 203 X10^3/uL (150-400); Red Blood Cell Count 4.04 X10^6/uL (4.5-5.9); Red Cell Distribution Width 13.3 % (11.6-14.8); White Blood Cell Count 5.4 X10^3/uL (4.5-11.0)
[2018-08-21 05:57] LABS: Blood Urea Nitrogen 20 mg/dL (9-20); Calcium 8.5 mg/dL (8.4-10.2); Carbon Dioxide 28 mmol/L (22-32); Chloride 103 mmol/L (98-107); Estimated Glomerular Filt Rate > 60.0 mL/min (>60); Glucose 80 mg/dL (80-110); HEMOLYSIS < 15 (0-50); Magnesium 2.3 mg/dL (1.6-2.3); Potassium 3.9 mmol/L (3.4-5.1); Sodium 136 mmol/L (137-145)
--- NOTE | 2018-08-21 06:00 | DI.ECHO.S_ITS ---
[place] +---------+ Hospital +---------+ : : [address] : : : : [id number] : : : : Phone: [phone] Echocardiogram Report + + :Name: KATHYA CHRISTINE Study Date: 08/21/2018 Height: 70 in : :[facility] Exam Location: [facility] Weight: 178 lb : : Gender: Male BSA: 2.0 m2 : :: 1955 Age: 63 yrs BP: 105/62 mmHg: :Reason For Study: Chest pain : :Ordering Physician: Bernabe : :Hospitalist Performed By: Francesca Page : :Referring: EDMUND WOOD : + + Interpretation Summary The ejection fraction is estimated to be 60-65%. The right ventricle is mildly dilated. The right ventricular systolic function is normal. There is chordal MEHDI, it appears unchanged from 2017. Consider TERRANCE as it could also represent a smll fibroelastoma There is no other significant valvular heart disease. Procedure: A two-dimensional transthoracic echocardiogram with color flow and Doppler was performed. The study quality was technically adequate. Comparison is made with the echocardiogram of 09/16/2016. The heart rate ranged form 50-85 bpm with two very brief moments of tachycardia while speaking with the doctor, reaching 118. Left Ventricle: The left ventricle is normal in size, wall thickness, and systolic function without any focal wall motion abnormalities. The ejection fraction is estimated to be 60-65%. Left ventricular wall motion is normal. Right Ventricle: The right ventricle is mildly dilated. The right ventricular systolic function is normal. Atria: The left atrium is mildly dilated. Right atrial size is normal. There is no Doppler evidence for an interatrial shunt. Mitral Valve: The mitral valve leaflets appear borderline thickened, but open well. There is chordal MEHDI, it appears unchanged from 2017. Consider TERRANCE as it could also represent a smll fibroelastoma. There is trace mitral regurgitation. Aortic Valve: The aortic valve is trileaflet. The aortic valve opens well. No aortic regurgitation is present. Tricuspid Valve: The tricuspid valve is normal in structure and function. There is trace tricuspid regurgitation. The right ventricular systolic pressure is estimated to be at least 24 mmHg based on an estimated right atrial pressure of 3 mm Hg. Pulmonic Valve: The pulmonic valve is not well visualized. There is a trace or physiologic amount of pulmonic regurgitation. Great Vessels: The aortic root is normal size. The ascending aorta is normal in size. The pulmonary artery is not well visualized, but is probably normal size. The IVC is of normal diameter and collapses greater than 50% with a sniff. This suggests a low right atrial pressure of 3 mm Hg. Pericardium/ Pleura There is no pericardial effusion. There is no pleural effusion. MMode/2D Measurements & Calculations LVIDd: 4.6 cm LVOT diam: 2.0 cm LVIDs: 3.6 cm Ao root diam: 3.3 cm FS: 20.8 % asc Aorta Diam: 3.2 cm EPSS: 0.16 cm IVSd: 0.91 cm LVPWd: 1.00 cm LV corea. diameter/BSA (cm/m^2): 2.3 LV sys. diameter/BSA (cm/m^2): 1.8 LA A2 area: 21.8 cm2 RA long axis: 5.4 cm LA A4 area: 24.0 cm2 RA area: 19.4 cm2 LA length (vol): 6.0 cm RA vol: 59.7 ml LA vol: 74.1 ml RA : 30.1 ml/m2 LA vol index: 37.3 ml/m2 IVC diam: 2.0 cm RVD1 (basal): 4.3 cm TAPSE: 2.6 cm Doppler Measurements & Calculations Ao V2 max: 123.1 cm/sec LVOT Max Pino: 113.7 cm/sec Ao V2 mean: 84.0 cm/sec LV V1 max P.2 mmHg Ao max P.1 mmHg LV V1 VTI: 22.1 cm Ao mean P.2 mmHg RUBEN(I,D): 2.9 cm2 Ao V2 VTI: 25.2 cm RUBEN(V,D): 3.0 cm2 sev ratio: 0.88 RUBEN indexed to BSA (cm^2/m^2): 1.5 MV E max pino: 53.0 cm/sec TR max pino: 227.1 cm/sec MV A max pino: 43.1 cm/sec TR max P.6 mmHg MV E/A: 1.2 PA V2 max: 70.3 cm/sec Med Peak E' Pino: 9.8 cm/sec PA V2 mean: 51.4 cm/sec E/E' med: 5.4 PA mean P.2 mmHg Lat Peak E' Pino: 11.6 cm/sec E/E' lat: 4.6 E/e' average: 5.0 MV dec time: 0.22 sec MV P1/2t: 66.7 msec MV P1/2t max pino: 53.9 cm/sec SV(LVOT): 72.5 ml MVA(2t): 3.3 cm2 Reading Physician:01:08 PM
--- NOTE | 2018-08-21 10:00 | PC.NURSE ---
Addendum entered by Tiffanie Hall R.N. 08/21/18 13:41: pt back from stress test, tele set back up. denies any chest pain, sob and h/a. at bedside. call light within reach Original Note: Day Shift Pt is A&O able to make needs known. Denies any chest pain, SOB and h/a. Continues to be NPO having ECHO and stress test this am. Call light within reach. IV fluids running at this time.
--- NOTE | 2018-08-21 12:58 | P.PCN_ITS ---
Cardiac Stress Test Report Referral & Results Date Patient Seen: 08/21/18 Time Patient Seen: 12:57 Requesting provider: Chetna Gutierrez Indication: Chest pain, current inpatient Rest ECG: Unremarkable Procedure Note: Today following both written and verbal informed consent the patient was exercised according to a standard Jesus protocol patient went for a total of 9 min to seconds achieving a maximum heart rate of 146 maximum systolic blood pressure of 152. This is approximately 10.1 METS. Exercise was terminated at this point because of targets were met. Patient was also given Cardiolite through a previously started Hep-Lock IV by the nuclear equipment sales engineer approximately 1 minute prior to the cessation of exercise. There are no ST-T segment changes Normal heart rate and blood pressure response to exercise Functional aerobic impairment rated about-10% on the active scale or better than average Impression: No ECG evidence of ischemia Better than average exercise capacity Please see perfusion imaging report as well. Please note: Actual ECG tracings can be found in the PACS system.
[2018-08-21 14:26] LABS: Troponin I < 0.012 ng/mL (0.01-0.034)
[2018-08-21 14:40] LABS: Troponin I 0.062 ng/mL (0.01-0.034)
--- NOTE | 2018-08-21 15:15 | CM.IDA ---
Discharge Planning/Care Management CM Discharge Assessment Start: 08/21/18 15:06 Freq: Status: Active Protocol: Document 08/21/18 15:07 CHRISTIANO (Rec: 08/21/18 15:14 CHRISTIANO [id number]) Discharge Planning Assessment Assigned Mechanical Applications Engineer WESTON Thomas DPOA/Assigned Designee Name Jewel Perez, spouse Contact Information [phone] Advance Directives? No History Provided By Patient Prior Living Arrangements House Household Members spouse Type of transporation used prior to Drives own vehicle admit Independent with ADL's Yes Is patient alert and oriented? Yes Barriers to Discharge No Comment Pt here for cardiac w/u, echo and stress test pending today. Payer: [employer]. Employer is [employer], pt is a [employer] worker. Reviewed chart. Attempted to meet w/pt but he was sleeping very soundly and no family at bedside. Chart inidcates pt as indp at baseline w/cardiac history to include Non-STEMI [place] 2016. Dr Gutierrez hopeful pt can DC back home w/close outpt f/u w/ in 24 hrs pending the results of these tests today. Following in case any DC needs or concerns arise. WESTON Olivera Discharge Plan Home Transportation Arrangement Family Referrals Initiated None needed Review Status In Process
--- NOTE | 2018-08-21 16:55 | P.DS_ITS ---
History of Present Illness Date Patient Seen: 08/20/18 Chief complaint: CHEST PAIN Narrative: Written by Sriram PARHAM: The patient a 63-year-old male with aforementioned medical history who presented to the ED out of concern for chest discomfort. Symptom onset at noon on 08/20/2018, respectively, sudden onset. At time of the event patient was working in his garage and had exposure to oil based solvents. Describes chest discomfort as an ache. Magnitude 4/10. Chest discomfort is localized to upper aspect of the sternum. Does not radiate to the extremities, neck or jaw. Exacerbated with deep inspiration and relieved with rest. Noted to be of variable intensity with position change, worse when bending down. Trialed a nitro for pain relief, which was ineffective. Reports partaking in a 1/2 hour vigorous interval training later in the day via a stairmaster, did not involve use of upper arms / torso, felt chest discomfort improved a bit. Tolerated vigorous exercise without difficulty. Ate a small dinner and had wine, shortly after experienced a pounding sensation in chest, checked pulse and noted it to be in the 80 bpm range (typically runs in the 60s). Denies associated symptoms of dyspnea, palpitations, hemoptysis, diaphoresis, dizziness, lightheadedness, syncopal events, peripheral edema, orthopnea, claudication, PND, abdominal pain, nausea, or vomiting. In the past week, most recent 2-3 days ago, has been rowing and bench pressing. Denies any chest discomfort at that time. Did not hear a popping sensation. Denies recent illness. In the past three weeks started taking 'amino acids.' Takes this concurrently with adderall and wellbutrin. Patient is known to have a prior history of NSTEMI (09/2016) with associated left arm discomfort, s/p cardiac cath which was unremarkable for severe stenosis, there were evidence of microvascular disease. Per patient, his symptoms were attributed to a coronary spasm. Patient has not been following up with Cardiology routinely since the aforementioned event in 2016. He has had multiple ED presentations w/ CP afterwards. No prior history of a stress test in the past. Denies h/o arthritis, malignancy or vasculitis. No new rashes. No recent dental procedures. 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 Chest discomfort is different from his previous episodes of chest pain. Discharge Providers Date of admission: 08/20/18 23:42 Discharge Date: 08/21/18 Primary care physician: Sina Collier MD Discharge provider: Chetna Gutierrez DO Summary Discharge Diagnosis: 1. Acute atypical chest pain,present on admission. Resolved. 2. Acute hypovolemia, present on admission. Resolved. 3. Dyslipidemia, chronic, present on admission. Stable. 4. Post encephalopathy cognitive impairment, chronic, present on admission. Stable. 5. Chronic pain, controlled, present on admission. Stable. Hospital Course: 1. Acute atypical chest pain,present on admission. Resolved. -Possibly secondary to inhalation of aluminum oxide while working in his shop versus musculoskeletal i.e. costochondritis. Ischemia ruled out. differential is vast and includes: anxiety versus coronary vasospasm versus esophageal spasm. -Trop < 0.012 x 2 and slightly elevated at 0.062 after cardiac stress test which is to be expected. D-Dimer < 200. CXR without cardiomegaly or an acute cardiopulmonary process. -EKG did not demonstrate any acute ischemic changes such as ST elevation or depression. Patient did have 1st degree AV block noted. -EKG available as needed for acute episodes of chest pain. -Echocardiogram demonstrated preserved systolic function with EF 60-65%, mild right ventricle dilatation with normal function, and chordal MEHDI of mitral valve unchanged from 2017. 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 -Cardiac NM stress test demonstrated good exercise capacity with out perfusion defect. Discussed with Cardiology, Dr. Kessler, who does not recommend rest portion. -Supportive care: ice / heat application, minimize activities that aggravate symptoms, tylenol or ibuprofen for discomfort. No return of chest pain. 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 2. Acute hypovolemia, present on admission. Resolved. -IVF at 100 ml/hr x 10 hours then discontinued. 3. Dyslipidemia, chronic, present on admission. Stable. -LDL 87, goal < 70 as he has had previous NSTEMI. -Increased pravastatin dose to 20 mg daily at bedtime. 4. Post encephalopathy cognitive impairment, chronic, present on admission. Stable. 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 -AUDIT MACHINE OPERATOR treated with Adderall which was held and continued at time of discharge. 5. Chronic pain, controlled, present on admission. Stable. -AUDIT MACHINE OPERATOR on suboxone and follows w/ pain management. Exam Vital Signs (past 8 hours): - 08/21/18 09:00 08/21/18 09:40 08/21/18 13:00 Temperature 97.6 F 97.7 F Pulse Rate 64 58 L Respiratory Rate 16 16 Blood Pressure 111/69 119/62 Pulse Oximetry 100 98 97 08/21/18 15:53 Temperature 97.9 F Pulse Rate 59 L Respiratory Rate 18 Blood Pressure 113/70 Pulse Oximetry 100 Oxygen Delivery Method Room Air Narrative Exam Narrative: General: Older gentleman sitting in bed and in no acute distress, well-de veloped, well-nourished, appropriately interactive. HEENT: Normocephalic, atraumatic. External ears without defect. Pupils equal, round, and reactive to light. Anicteric sclerae, moist conjunctivae, and no lid lag. Oropharynx free of erythema and cobble stoning with moist mucosa. Neck: Supple with full range of motion. No jugular venous distension. No bruits. No lymphadenopathy or thyromegaly. Cardiovascular: Regular rate and rhythm without murmurs, rubs, or gallops appreciated Pulmonary: Clear to auscultation bilaterally without crackles, wheezes, or rhonchi. Normal respiratory effort with no use of accessory muscles. Abdomen: Soft, bowel sounds present, nontender, nondistended. No h epatosplenomegaly or masses appreciated. Extremities: No clubbing, cyanosis, or edema. Skin: Normal temperature, turgor, and texture; no rash, ulcers, or subcutaneous nodules appreciated. Neurological: Cranial nerves grossly intact. Normal muscle strength, tone, and bulk. Reflexes, coordination, and sensory function within normal limits. No known gait impairment. Psychiatric: Normal mood and affect. Alert and oriented to person, place, and time. Objective Labs Result Diagrams: 08/21/18 05:15 08/21/18 05:15 Labs: Laboratory Results - last 24 hr 08/20/18 08/20/18 08/20/18 21:02 21:02 21:02 WBC 9.7 RBC 4.35 L Hgb 13.1 L Hct 39.9 L MCV 91.7 MCH 30.0 MCHC 32.7 RDW 13.3 Plt Count 243 Neut % (Auto) 82.6 H Lymph % (Auto) 11.7 L [place] % (Auto) 5.1 Eos % (Auto) 0.2 L Baso % (Auto) 0.4 Neut # (Auto) 8000 H Lymph # (Auto) 1100 [place] # (Auto) 500 Eos # (Auto) 0 Baso # (Auto) 0 D-Dimer < 200 Sodium 138 Potassium 3.7 Chloride 98 Carbon Dioxide 31 BUN 22 H Creatinine 0.90 Estimated GFR > 60.0 BUN/Creatinine Ratio 24.4 H Glucose 114 H Calcium 9.3 Magnesium Total Creatine Kinase 86 CK-MB (CK-2) TNP CK-MB (CK-2) Rel Index TNP Troponin I < 0.012 08/21/18 08/21/18 08/21/18 05:15 05:15 14:14 WBC 5.4 RBC 4.04 L Hgb 12.2 L Hct 36.6 L MCV 90.6 MCH 30.1 MCHC 33.3 RDW 13.3 Plt Count 203 Neut % (Auto) 57.8 D Lymph % (Auto) 31.4 [place] % (Auto) 9.5 Eos % (Auto) 0.9 L Baso % (Auto) 0.4 Neut # (Auto) 3100 Lymph # (Auto) 1700 [place] # (Auto) 500 Eos # (Auto) 0 Baso # (Auto) 0 D-Dimer Sodium 136 L Potassium 3.9 Chloride 103 Carbon Dioxide 28 BUN 20 Creatinine 0.80 Estimated GFR > 60.0 BUN/Creatinine Ratio 25.0 H Glucose 80 Calcium 8.5 Magnesium 2.3 Total Creatine Kinase CK-MB (CK-2) CK-MB (CK-2) Rel Index Troponin I < 0.012 0.062 H Discharge Plan Discharge Plan Patient Disposition: Home Discharge comment: You are being discharged home. Your cardiac stress test / perfusion scan did not demonstrate any ischemia suggestive of heart attack or impending heart attack. Your EKG was normal with a small 1st degree AV block which is benign and does not require any intervention. Your cardiac enzymes were normal and only slightly elevated after your stress test which is also to be expected. Your echocardiogram was normal other than the motion of your mitral valve as we discussed. You may need a TERRANCE to further evaluate this as it can be associated with a benign tumor called fibroelastoma. Please follow-up with your, PCP Dr. Collier, regarding your hospitalization and to discuss your echocardiogram results and further management. Your pravastatin was increased to 20 mg daily at bedtime to better control your LDL or bad cholesterol. Discharge Med Rec/Prescriptions Prescriptions: Continued CA PANTOTHENATE/FOLIC ACID/VIT (MULTIVITAMIN) 1 tab PO Q DAY Qty: 0 RF: 0 BUPRENORPHINE/NALOXONE (SUBOXONE) 8 mg PO QDAY Qty: 0 RF: 0 ascorbic acid (vitamin C) 500 MG tablet 500 mg PO BID Qty: 0 RF: 0 aspirin 81 MG tablet,delayed release (DR/EC) 81 mg QDAY Qty: 0 RF: 0 nitroglycerin [Nitrostat] 0.4 mg tablet, sublingual 0.4 mg Sublingual PRN PRN (Reason: chest pain) Qty: 20 RF: 0 dextroamphetamine-amphetamine [Adderall] 5 mg tablet 5 mg PO BID Qty: 60 RF: 0 bupropion HCl 150 mg tablet sustained-release 12 hr 150 mg PO DAILY Qty: 90 RF: 3 Changed pravastatin 10 mg tablet 20 mg PO BEDTIME Qty: 0 RF: 0 Follow up/Referrals: Sina Collier MD [Primary Care Provider] - Provider Discharge Instructions Diet: Low-fat, Low-sodium and Low-cholesterol Activity: Activity as tolerated Visit Report/Discharge Packet Instructions: The Mediterranean Diet and Good Health Discharge Data Primary Care Provider: Sina Collier Attending Provider: Sriram Guzman Admit Date/Time: 08/20/18 23:42 Quality VTE Deep Vein Thrombosis/Pulmonary Embolism Present on Admission: No
--- NOTE | 2018-08-21 17:38 | DI.NM.S_ITS ---
DATE OF SERVICE: 08/21/2018 PROCEDURE: Exercise perfusion study. INDICATIONS: Chest pain with history of hyperlipidemia, ADHD. RADIOPHARMACEUTICAL: 26.6 mCi technetium-99m Myoview IV was injected at stress. Please note, this is an exercise stress test only. MYOCARDIAL PERFUSION: Patient underwent exercise perfusion study under the supervision of an attending staff. Patient walked on Jesus protocol for 9 minutes 02 seconds achieved 92% of target heart rate and normal blood pressure response. Baseline EKG revealed sinus rhythm. During stress, there were no convincing ischemic changes. There were no significant sustained arrhythmias. Patient has some mild chest discomfort. Functional aerobic impairment, -10%. Patient achieved 10.1 METs of workload. RAW DATA: There was increased subdiaphragmatic activity. GATED STUDY: Stress LV ejection fraction 60% without any obvious wall motion abnormalities. Stress end-diastolic volume is 119 mL. Lung/heart ratio is 0.36, which is within normal limits. MYOCARDIAL PERFUSION SCAN: Stress supine images revealed small-sized mildly decreased perfusion of anterior wall and anterior apex which got resolved during prone images. Prone images showed new minimally decreased perfusion of inferior apex which was not seen during stress supine images. CONCLUSION: I will call this study likely normal myocardial perfusion study with evidence of tissue attenuation artifact which got resolved during prone images seen in anterior wall and anterior apex. There is also evidence of shifting tissue attenuation artifact as prone images had minimally decreased perfusion of inferior apex which was not seen during stress supine images. Patient has good exercise tolerance. Walked on Jesus protocol for 9 minutes 02 seconds. Achieved 10.1 METs of workload. No ischemic changes. No significant arrhythmias. Overall, this is a low-risk myocardial perfusion scan. Franki Reynolds - JAMIE/melanie/ doc#: [id number]/job#: [id number] dd: 08/21/2018 16:46:00 dt: 08/21/2018 17:28:00 DICTATING MD/COPIES TO: Ananth Kessler MD COPIES MNE: MARLYN
--- NOTE | 2018-08-21 17:53 | PC.NURSE ---
Pt awake, alert, lying quietly in bed. Asks staff about plan for evening. Dr. Gutierrez in to see patient and process discharge to home. Pt's spouse arrives. Tele dc'd and heplock removed intact. Written and verbal discharge instructions provided to pt and pt's spouse. Questions answered as appropriate. Pt discharged from hospital via wheelchair with spouse. [employer] escort provided. All personal belongings accounted for. Pt left hospital in stable condition.
== END 2018-08-21 17:44 | disposition home or self-care (01) ==
LOC: ED 23:11 → AC 23:43
PROVIDERS: Internal Medicine; Admitting Provider Nurse Practitioner Gerontology; Emergency Provider Emergency Medicine; Family Provider Student in an Organized Health Care Education/Training Program; PCP Student in an Organized Health Care Education/Training Program; Visit Provider Nurse Practitioner Gerontology
DX: R07.9 Chest pain, unspecified (principal); E78.5 Hyperlipidemia, unspecified; I25.2 Old myocardial infarction; G31.84 Mild cognitive impairment of uncertain or unknown etiology; G89.29 Other chronic pain; Z79.899 Other long term (current) drug therapy; F32.9 Major depressive disorder, single episode, unspecified; R51 Headache; F90.9 Attention-deficit hyperactivity disorder, unspecified type; Z86.61 Personal history of infections of the central nervous system; E86.1 Hypovolemia
CPT/HCPCS: 36415; 36591; 71045; 78451; 78452; 80048; 82550; 83735; 84484; 85025; 85379; 93005; 93010; 93016; 93017; 93018; 96361; 96374; 99284; 99285; G0378; A9502; C8929; J1650; J1885

== ENCOUNTER → 2018-08-27 12:10 | Outpatient (CLI) | payer OTHER, SELFPAY ==
[2018-08-21 01:09] VITALS: BMI 25.5
[2018-08-27 14:43] LABS: TSH w/ Reflex to FT4 2.35 uIU/mL (0.47-4.68)
[2018-08-27 15:39] LABS: Vitamin D 25 Hydroxy (D3) 51.5 ng/mL (30.0-100.0)
== END ==
PROVIDERS: Family Provider Student in an Organized Health Care Education/Training Program; PCP Student in an Organized Health Care Education/Training Program; Visit Provider Student in an Organized Health Care Education/Training Program
DX: R53.83 Other fatigue (principal); E55.9 Vitamin D deficiency, unspecified
CPT/HCPCS: 36415; 82306; 84443

== ENCOUNTER → 2019-04-29 13:10 | Outpatient (CLI) | payer OTHER, SELFPAY ==
[2018-08-21 01:09] VITALS: BMI 25.5
[2019-04-29 13:42] LABS: Hematocrit 39.8 % (41-53); Hemoglobin 13.4 g/dL (13.5-17.5); Mean Corpuscular HGB Conc 33.5 % (30-36); Mean Corpuscular Hemoglobin 30.1 PG (26-34); Mean Corpuscular Volume 89.7 fL (80-100); Platelet Count 233 X10^3/uL (150-400); Red Blood Cell Count 4.44 X10^6/uL (4.5-5.9); Red Cell Distribution Width 13.4 % (11.6-14.8); White Blood Cell Count 4.9 X10^3/uL (4.5-11.0)
[2019-04-29 13:48] LABS: Reticulocyte Count, Percent 0.6 % (0.87-2.60)
[2019-04-29 14:19] LABS: Alanine Aminotransferase 22 IU/L (<50); Albumin 4.4 g/dL (3.5-5.0); Albumin Globulin Ratio 1.7 (1.0-2.8); Alkaline Phosphatase 65 U/L (38-126); Aspartate Aminotransferase 48 IU/L (17-59); Bilirubin Total 0.8 mg/dL (0.2-1.3); Bilirubin Unconjugated 0.7 mg/dL (0.0-1.1); Cholesterol 210 mg/dL (140-199); Globulin 2.6 g/dL (1.7-4.1); HDL Cholesterol 80 mg/dL (40-60); HEMOLYSIS < 15 (0-50); LDL Cholesterol Calculated 122 mg/dL (<100); Triglycerides 42 mg/dL (35-150)
[2019-04-29 14:49] LABS: Prostate Specific Antigen Scrn 0.213 ng/mL (0.1-4.0)
[2019-04-29 15:23] LABS: Iron 121 ug/dL (49-181)
[2019-04-29 15:30] LABS: Transferrin 268 mg/dL (206-381)
[2019-05-02 14:03] LABS: HEMOLYSIS 15 (0-50); Percent Iron Saturation 40 % (20-50); Total Iron Binding Capacity 305 ug/dL (261-462)
== END ==
PROVIDERS: PCP Student in an Organized Health Care Education/Training Program; Visit Provider Student in an Organized Health Care Education/Training Program
DX: Z12.5 Encounter for screening for malignant neoplasm of prostate (principal); D64.9 Anemia, unspecified; E78.2 Mixed hyperlipidemia; I25.2 Old myocardial infarction; Z79.899 Other long term (current) drug therapy
CPT/HCPCS: 36415; 80061; 80076; 83540; 83550; 85027; 85045; G0103

== ENCOUNTER 2019-06-23 12:44 | Day surgery (SDC) | payer OTHER, SELFPAY ==
[2018-08-21 01:09] VITALS: BMI 25.5
[2019-06-23] VITALS (7 sets, daily range): BP systolic 97–122; BP diastolic 54–69; PULSE 51–57; RESP 8–15; TEMP 36.2–36.6; O2SAT 95–100; BMI 10.4
[2019-06-23] MEDS: SODIUM CHLORIDE 0.9% 1,000 ML 200 ML IV (13:42)
--- NOTE | 2019-06-23 14:03 | PM.HP.1 ---
History of Present Illness History of Present Illness Date Patient Seen: 06/23/19 Time Patient Seen: 14:07 Chief complaint: [id number] SCREENING COLONOSCOPY Narrative: Asymptomatic patient here for a screening colonoscopy. He has had 1 previous colonoscopy 10 years ago and no polyps were seen. Denies melena or hematochezia Patient History Medical History ADHD (attention deficit hyperactivity disorder) (Chronic 2016) Chronic back pain (Chronic) Chronic headaches (Chronic) Cryptococcal meningitis (Resolved) CTS (carpal tunnel syndrome) (Resolved) Depression (Chronic) Kidney stones (Resolved 2007) Lumbar spine pain (Chronic) Non-STEMI (non-ST elevated myocardial infarction) (Resolved 2016) Surgical History History of carpal tunnel repair (Resolved 09/2005) History of lithotripsy (Resolved 02/07/08) Status post colonoscopy (Resolved 2008) Status post laminectomy (Resolved 1983) Status post laminectomy (Resolved 1999) Family & Social History Family History Father Cancer Social History: household members spouse Tobacco & Substance use: Smoking Status Never smoker alcohol intake frequency 0-2 drinks per day Substance Use Type does not use Meds Home Medications and Allergies Home Medications Medication Instructions Recorded Confirmed Type CA PANTOTHENATE/FOLIC ACID/VIT 1 tab PO Q DAY #0 07/18/11 06/23/19 History (MULTIVITAMIN) ascorbic acid (vitamin C) 500 mg PO BID #0 07/24/11 06/23/19 History aspirin 81 mg QDAY #0 11/26/16 06/23/19 History nitroglycerin 0.4 mg sublingual 0.4 mg SUBLINGUAL PRN PRN #20 tab 01/29/18 04/22/19 Rx tablet cyclobenzaprine 10 mg tablet 10 mg PO DAILY PRN #30 tab 10/15/18 06/23/19 Rx bupropion HCl 150 mg 24 hr tablet, 150 mg PO QAM #90 tab 04/04/19 06/23/19 Rx extended release gabapentin 800 mg tablet 800 mg PO BEDTIME #90 tab 04/04/19 06/23/19 Rx dextroamphetamine-amphetamine 5 mg 5 mg PO BID #60 tab 04/29/19 06/23/19 Rx tablet dextroamphetamine-amphetamine ER 5 5 mg PO DAILY #30 cap 04/29/19 06/23/19 Rx mg 24hr capsule,extend release Allergies Allergy/AdvReac Type Severity Reaction Status Date / Time diphenhydramine Allergy Mild HYPERKINETIC Verified 04/22/19 14:51 [DIPHENHYDRAMINE] CAN'T STOP MOVING hydroxyzine [HYDROXYZINE] Allergy Mild HYPERKINETIC Verified 04/22/19 14:51 CAN'T STOP MOVING atomoxetine [From [facility]] AdvReac Unknown RAPID Verified 04/22/19 14:51 HEART RATE Exam Vital Signs (past 8 hours): - 06/23/19 13:20 Temperature 97.2 F L Pulse Rate 57 L Respiratory Rate 15 Blood Pressure 122/69 Pulse Oximetry 100 Oxygen Delivery Method Room Air Narrative Exam Narrative: Asymptomatic patient alert oriented Lungs are clear with no rales or wheezes Heart regular rhythm no murmur no gallop Abdomen soft no organomegaly no tenderness Rectal will be done at colonoscopy Assessment & Plan Assessment & Plan narrative: Asymptomatic patient here for a screening colonoscopy has no unanswered questions
[2019-06-23] MEDS: MIDAZOLAM 5 MG/5 ML VIAL IV (14:24)
[2019-06-23] MEDS: fentaNYL 250 MCG/5 ML INJ IV (14:24)
--- NOTE | 2019-06-23 14:39 | PM.OP.ENDO ---
Operative Date/Time/Diagnoses Date of procedure: 06/23/19 Time of procedure: 14:39 Pre-op diagnosis: Screening colonoscopy Post-op diagnosis: same Procedure & Clinicians Study performed: Colonoscopy to the hepatic flexure. The procedure was aborted at the hepatic flexure because of patient discomfort and abrasions to the colonic mucosa at that level. Same procedure as scheduled: No Surgeon: Richard Obrien Procedure Notes SCOAP/Timeout: This was done Procedure in detail: The patient was properly identified during surgical pause. The flexible fiberoptic colonoscope inserted transanally to the hepatic flexure. At the hepatic flexure the patient experienced marked discomfort despite receiving a total of 5 mg of Versed and 250 micro g of fentanyl. Mucosal abrasions caused by the scope at the hepatic flexure combined with the patient's discomfort was enough for me to abort the procedure at that level. The colon that was observed from the anus to the hepatic flexure is entirely normal. Future colonoscopy could be entertained with the use of general anesthesia. Scope withdrawal time: 8 Sedation minutes: 25 Specimen(s): none sent Complications: other (Pain on attempting to enter the ascending colon.) Impression: Normal exam up to the level of the hepatic flexure. If clinically indicated further evaluation using colo guard or human fecal hemoglobin studies could be entertained. Barium enema is another modality that could assess the ascending colon. Future attempts at colonoscopy should be done with the use of general anesthesia. Post-procedure Recommendations: Colonscopy in 5 years Plan for aftercare: See above recommendations. Barium enema could be done to evaluate the ascending colon if clinically indicated. Follow up: as needed Disposition: PACU
== END 2019-06-23 15:38 | disposition home or self-care (01) ==
PROVIDERS: PCP Student in an Organized Health Care Education/Training Program; Visit Provider Surgery
PROC: 0DJD8ZZ Inspection of Lower Intestinal Tract, Via Natural or Artificial Opening Endoscopic (ICD-10-PCS; CPT 45378; principal; 2019-06-23 14:30)
DX: Z12.11 Encounter for screening for malignant neoplasm of colon (principal); Z53.09 Procedure and treatment not carried out because of other contraindication
CPT/HCPCS: 45378; 99152; 99153; J2250; J3010

== ENCOUNTER 2019-10-23 17:38 | Emergency (ER) | payer OTHER, SELFPAY ==
[2018-08-21 01:09] VITALS: BMI 25.5
[2019-10-23 17:40] VITALS: BP 134/67; PULSE 52; RESP 15; TEMP 36.6; O2SAT 99; BMI 23.6
--- NOTE | 2019-10-23 18:52 | ED.WOUNDLAC ---
HPI - Wound/Laceration General Chief Complaint: Wound/Laceration Stated Complaint: left arm cut Time Seen by Provider: 10/23/19 18:00 Source: patient Mode of arrival: Ambulatory Limitations: no limitations History of Present Illness HPI narrative: 64-year-old male nonsmoker with noncontributory medical history presents with a chief complaint to a laceration on the volar surface of his left forearm while working with a power tool earlier today. He has full range of motion, strength and sensation of his fingers. He denies any other injury and is otherwise well and free of complaint. His tetanus will need to be updated today. Onset (ago): hour(s) Extremity Location: Left: forearm Place: home Patient tetanus UTD: No Context: accidental Associated symptoms: none Treatments prior to arrival: bandage Related Data Home Medications Medication Instructions Recorded Confirmed CA PANTOTHENATE/FOLIC ACID/VIT 1 tab PO Q DAY #0 07/18/11 06/23/19 (MULTIVITAMIN) ascorbic acid (vitamin C) 500 mg PO BID #0 07/24/11 06/23/19 aspirin 81 mg QDAY #0 11/26/16 06/23/19 Previous Rx's Medication Instructions Recorded nitroglycerin 0.4 mg sublingual 0.4 mg SUBLINGUAL PRN PRN #20 tab 01/29/18 tablet cyclobenzaprine 10 mg tablet 10 mg PO DAILY PRN #30 tab 10/15/18 bupropion HCl 150 mg 24 hr tablet, 150 mg PO QAM #90 tab 08/22/19 extended release dextroamphetamine-amphetamine 5 mg 5 mg PO BID #60 tab 09/24/19 tablet dextroamphetamine-amphetamine ER 5 5 mg PO DAILY #30 cap 09/24/19 mg 24hr capsule,extend release gabapentin 800 mg tablet 800 mg PO BEDTIME #90 tab 10/06/19 Allergies Allergy/AdvReac Type Severity Reaction Status Date / Time diphenhydramine Allergy Mild HYPERKINETIC Verified 10/23/19 18:00 [DIPHENHYDRAMINE] CAN'T STOP MOVING hydroxyzine [HYDROXYZINE] Allergy Mild HYPERKINETIC Verified 10/23/19 18:00 CAN'T STOP MOVING atomoxetine [From [facility]] AdvReac Unknown RAPID Verified 10/23/19 18:00 HEART RATE Review of Systems Constitutional Constitutional: Denies chills, Denies fatigue, Denies fever(s), Denies frequent falls, Denies lethargy and Denies weakness Eyes Eyes: Denies change in vision, Denies eye discharge, Denies irritation and Denies loss of vision ENT Ears, Nose, Mouth, and Throat: Denies change in voice, Denies dizziness, Denies neck pain, Denies sore throat and Denies throat swelling Cardiovascular Cardiovascular: Denies chest pain, Denies irregular heart rhythm, Denies lightheadedness, Denies palpitations, Denies dyspnea, Denies dyspnea on exertion and Denies orthopnea Respiratory Respiratory: Denies cough, Denies dyspnea, Denies dyspnea on exertion and Denies wheezing Gastrointestinal Gastrointestinal: Denies abdominal pain, Denies change in bowel habits, Denies diarrhea, Denies nausea and Denies vomiting Genitourinary Genitourinary: Denies hematuria, Denies flank pain, Denies urinary incontinence and Denies urinary urgency Musculoskeletal Musculoskeletal: Denies back pain, Denies muscle weakness, Denies neck pain, Denies numbness and Denies tingling Integumentary/Breasts Skin/Breast: Denies pruritus, Denies erythema, Denies rash and Reports wounds Neurologic Neurologic: Denies behavioral changes, Denies confusion, Denies dizziness, Denies frequent falls, Denies loss of vision, Denies numbness, Denies tingling and Denies weakness Psychiatric Psychiatric: Denies anxiety, Denies behavioral changes, Denies confusion, Denies depression, Denies homicidal ideation and Denies suicidal ideation Endocrine Endocrine: Denies fatigue, Denies flushing and Denies palpitations Hematologic/Lymphatic Hematologic/Lymphatic: Denies easy bruising Allergic/Immunologic Allergic/Immunologic: Denies urticaria, Denies throat swelling and Denies wheezing Patient History Medical History ADHD (attention deficit hyperactivity disorder) (Chronic 2017) Chronic back pain (Chronic) Chronic headaches (Chronic) Cryptococcal meningitis (Resolved) CTS (carpal tunnel syndrome) (Resolved) Depression (Chronic) Kidney stones (Resolved 2007) Lumbar spine pain (Chronic) Non-STEMI (non-ST elevated myocardial infarction) (Resolved 2016) Surgical History History of carpal tunnel repair (Resolved 09/2005) History of lithotripsy (Resolved 02/07/08) Status post colonoscopy (Resolved 2008) Status post laminectomy (Resolved 1983) Status post laminectomy (Resolved 1999) Family History Father Cancer Social History household members: spouse Smoking Status: Never smoker Smoking Status: Never smoker alcohol intake frequency: 0-2 drinks per day Substance Use Type: does not use Exam Narrative Exam Narrative: GEN: AOx3 and in mild distress EYES: Pupils are equal, round, and reactive to light and accommodation. Extraoccular muscles are intact bilaterally. There is no subconjunctival hemorrhage or exudate. CHEST: Lungs are clear to auscultation bilaterally and free of wheezes, rales, or rhonchi. Heart rate is regular rhythm, there are no murmurs, clicks, rubs, or gallops. There is no chest wall tenderness. ABD: Abdomen is soft and nontender. There is no guarding or rebound. Bowel sounds are normal in all 4 quadrants. There is no mass or organomegaly. EXT: 0.5cm laceration on lateral volar surface of L forearm. No active bleeding. Soft compartments. Full strength and sensation of all fingers. Full painless ROM of all extremities with no loss of sensation or strength. SKIN: Warm, pink, and dry. No erythema or rash Initial Vital Signs Initial Vital Signs: Vital Signs Temperature 97.9 F 10/23/19 17:40 Pulse Rate 52 L 10/23/19 17:40 Respiratory Rate 15 10/23/19 17:40 Blood Pressure 134/67 10/23/19 17:40 Pulse Oximetry 99 10/23/19 17:40 Procedures Laceration Repair Laceration 1: Site: upper extremity Side (If applicable): left Size (cm): 1 Description: linear Depth: simple, single layer Local Anesthetic: lidocaine 1% and with bicarb Amount of anesthesia used (mL): 3 Pre-repair: wound explored Skin layer closed with: nylon Size (cm): 5-0 Number of sutures: 2 Course Orders Ordered: Discontinued Medications Diphtheria/Tetanus/Acell Pertussis (Adacel) 0.5 ml IM .ONCE ONE Stop: 10/23/19 19:08 Last Admin: 10/23/19 19:12 Dose: 0.5 ml Documented by: OBI Lidocaine/Sodium Bicarbonate (Buffered Lidocaine 10 Ml Syr) 10 ml INJ NOW ONE Stop: 10/23/19 19:07 Last Admin: 10/23/19 19:13 Dose: 10 ml Documented by: OBI Vital Signs Vital signs: Vital Signs - 8 hr 10/23/19 17:40 Temperature 97.9 F Pulse Rate 52 L Respiratory Rate 15 Blood Pressure 134/67 Pulse Oximetry 99 Discharge Plan Departure Patient Disposition: Home Clinical Impression: Laceration Discharge Date/Time: 10/23/19 19:38 Instructions: DI for Laceration Repair Activity Restrictions/Additional Instructions: *You have been diagnosed with [left forearm laceration] *What to do: *Take medications as directed Please keep the wound clean and dry to the best of your ability. Please monitor for signs of infection such as redness to the skin or increasing pain. Have the sutures removed by your doctor in about 7 days. If you are unable to get into your doctor, we would be happy to remove the sutures in that same timeframe. *Return to ER if you should have any new, worsening or concerning symptoms Prescriptions: No Action CA PANTOTHENATE/FOLIC ACID/VIT (MULTIVITAMIN) tablet 1 tab PO Q DAY Qty: 0 RF: 0 ascorbic acid (vitamin C) 500 MG tablet 500 mg PO BID Qty: 0 RF: 0 aspirin 81 MG tablet,delayed release (DR/EC) 81 mg QDAY Qty: 0 RF: 0 nitroglycerin [Nitrostat] 0.4 mg tablet, sublingual 0.4 mg Sublingual PRN PRN (Reason: chest pain) Qty: 20 RF: 0 bupropion HCl 150 mg tablet extended release 24 hr 150 mg PO QAM Qty: 90 RF: 1 dextroamphetamine-amphetamine [Adderall XR] 5 mg capsule,extended release 24hr 5 mg PO DAILY Qty: 30 RF: 0 dextroamphetamine-amphetamine [Adderall] 5 mg tablet 5 mg PO BID Qty: 60 RF: 0 gabapentin 800 mg tablet 800 mg PO BEDTIME Qty: 90 RF: 3 cyclobenzaprine 10 mg tablet 10 mg PO DAILY PRN (Reason: muscle spasm) Qty: 30 RF: 5 Referrals: Sina Collier MD [Primary Care Provider] -
[2019-10-23] MEDS: TET,DIPH,PERTUSS(ACELL),VAC/PF 0.5 ML SYRINGE IM (19:12)
[2019-10-23] MEDS: LIDO 1%/SOD BICARB 8.4% (10ML) 10 ML SYRINGE INJ (19:13)
[2019-10-23 19:35] VITALS: BP 141/76; PULSE 55; RESP 20; O2SAT 99
== END 2019-10-23 19:38 | disposition home or self-care (01) ==
PROVIDERS: Emergency Provider Emergency Medicine; PCP Student in an Organized Health Care Education/Training Program
DX: S51.812A Laceration without foreign body of left forearm, initial encounter (principal); W29.8XXA Contact with other powered hand tools and household machinery, initial encounter; Z23 Encounter for immunization
CPT/HCPCS: 12001; 90471; 99283; 90715

== ENCOUNTER → 2021-09-09 12:03 | Outpatient (CLI) | payer OTHER, SELFPAY ==
[2018-08-21 01:09] VITALS: BMI 25.5
[2021-09-09 12:59] LABS: BUN Creatinine Ratio 22.8 (6-22); Blood Urea Nitrogen 21 mg/dL (9-20); Calcium 9.4 mg/dL (8.4-10.2); Carbon Dioxide 31 mmol/L (22-32); Chloride 99 mmol/L (98-107); Estimated Glomerular Filt Rate > 60.0 mL/min (>60); Glucose 95 mg/dL (80-110); HEMOLYSIS < 15 (0-50); Potassium 4.1 mmol/L (3.4-5.1); Sodium 136 mmol/L (137-145)
[2021-09-09 13:33] LABS: Prostate Specific Antigen Scrn 0.229 ng/mL (0.1-4.0)
== END ==
PROVIDERS: PCP Student in an Organized Health Care Education/Training Program; Referring Provider Student in an Organized Health Care Education/Training Program; Visit Provider Student in an Organized Health Care Education/Training Program
DX: Z12.5 Encounter for screening for malignant neoplasm of prostate (principal); Z79.899 Other long term (current) drug therapy
CPT/HCPCS: 36415; 80048; G0103